=== PATIENT | male | born 1990 | race American Indian/Alaskan Native ===

== ENCOUNTER 2017-09-02 09:59 | Emergency (ER) | payer MEDICAID ==
[2017-09-02 10:53] LABS: Bilirubin,Urine NEG (Negative); Blood,Urine LG (Negative); Color,Urine Yellow (Yellow)
[2017-09-02 11:02] LABS: WBC,Urine > 182.0 /HPF (0.0-6.0)
[2017-09-02] MEDS ORDERED: BACTRIM DS PO ONE (12:07)
[2017-09-02] MEDS ORDERED: MOTRIN PO ONE (12:07)
[2017-09-02] MEDS ORDERED: ZITHROMAX PO ONE (12:08)
[2017-09-02] MEDS ORDERED: XYLOCAINE 1% MPF 5 mL INFILTRATI ONE (12:08)
[2017-09-02] MEDS ORDERED: ROCEPHIN IM ONE (12:08)
--- NOTE | 2017-09-02 12:13 | Emergency Department Report ---
ED Male HPI - General Chief complaint: Abdominal Pain Stated complaint: RIGHT FLANK PAIN/POSS UTI Time Seen by Provider: 09/02/17 12:06 Source: patient Mode of arrival: Ambulatory Limitations: No Limitations - History of Present Illness Complaint: dysuria -: Gradual, days(s) (3) Location: right flank Radiation: none Severity: mild Severity scale (0 -10): 1 Quality: aching Consistency: intermittent Improves with: rest Worsens with: movement (of trunk) trauma (denies) dysuria, other (reports history of UTI reports symptoms similar. Denies hx STD. Reports unprotected sex. 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 Reports pain with movement of his trunk. ). denies: discharge, swelling, mass, rash, urinary retention, blood in urine, fever, nausea/vomiting, incontinence - Related Data Previous Rx's Medication Instructions Recorded Last Taken Type Ibuprofen [Motrin] 600 mg PO Q8H PRN #20 tablet 09/02/17 Unknown Rx Sulfamethoxazole/Trimethoprim 1 each PO BID #20 tablet 09/02/17 Unknown Rx [Bactrim DS TAB] Allergies Allergy/AdvReac Type Severity Reaction Status Date / Time No Known Allergies Allergy Unverified 09/02/17 10:04 ED Review of Systems ROS: Stated complaint: RIGHT FLANK PAIN/POSS UTI Other details as noted in HPI Other: GENERAL: No weight change, fatigue, weakness, fever, chills, or night sweats SKIN: No changes in skin or hair, no itching, no rashes, no jaundice HEAD: No trauma, headache, or visual changes CARDIAC: No new murmur, chest pain, palpitations, dyspnea on exertion, orthopnea , PND, or edema RESPIRATORY: No shortness of breath, wheeze, cough, sputum production, hemoptysis, pneumonia, asthma, bronchitis, or emphysema GI: No change in appetite, nausea, vomiting, dysphagia, change in bowel frequency, diarrhea, constipation, bleeding, hematemesis, melena, hematochezia, or abdominal pain URINARY: No urgency, polyuria, hematuria, or incontinence MUSCULOSKELETAL: Reports right sided pain with movement. No muscle weakness, joint stiffness, decrease in range of motion, redness, swelling NEUROLOGIC: No loss of sensation, numbness, tingling, tremors, weakness, paralysis, seizures HEMATOLOGIC: No anemia, easy bruising, bleeding, petechiae, or purpura ENDOCRINE: No hot or cold intolerance, sweating, polyuria, polydipsia or, polyphagia no thyroid problems GENITAL: Male: Reports frequency and dysuria. No penile discharge, testicular pain, testicular masses, or hernia ED Past Medical Hx - Past Medical History Previous Medical History?: No - Surgical History Past Surgical History?: Yes Additional Surgical History: Right eye - Social History Smoking Status: Current Every Day Smoker Substance Use Type: Alcohol - Medications Home Medications: Home Medications Medication Instructions Recorded Confirmed Last Taken Type Ibuprofen [Motrin] 600 mg PO Q8H PRN #20 tablet 09/02/17 Unknown Rx Sulfamethoxazole/Trimethoprim 1 each PO BID #20 tablet 09/02/17 Unknown Rx [Bactrim DS TAB] ED Physical Exam - General Limitations: No Limitations - Other Other exam information: GENERAL: Patient in no acute distress HEAD: Normocephalic, atraumatic EYES: PERRLA, EOM intact, no scleral icterus, visual mejía and acuity wnl NOSE: No tenderness, discharge, sinus tenderness MOUTH: No erythema, bleeding, exudate HEART: Regular rate and rhythm, no murmur, S1-S2 are auscultated, pulses are symmetric LUNGS: bilateral breath sounds. No wheezing, rales, rhonchi ABDOMEN: Normal bowel sounds, no tenderness, no rebound, no guarding, no masses , no CVA tenderness MUSCULOSKELETAL: Normal joint range of motion, no redness, no swelling, no tenderness NEUROLOGIC: GCS 15, Alert and Oriented x3, Cranial nerves intact, normal sensation, normal strength, normal gait, no cerebellar deficit SKIN: Skin is warm and dry, no wounds, no rashes ED Course Vital Signs 09/02/17 10:04 Temperature 99.5 F Pulse Rate 97 H Respiratory 17 Rate Blood Pressure 118/85 O2 Sat by Pulse 97 Oximetry ED Medical Decision Making - Lab Data Laboratory Results - last 24 hr 09/02/17 10:31 Urine Color Yellow Urine Turbidity Clear Urine pH 6.0 Ur Specific [place] 1.009 Urine Protein 100 mg/dl Urine Glucose (UA) Neg Urine Ketones Neg Urine Blood Lg Urine Nitrite Neg Urine Bilirubin Neg Urine Urobilinogen 2.0 Ur Leukocyte Esterase Lg Urine WBC (Auto) > 182.0 H Urine RBC (Auto) 166.0 Urine WBC Clumps 3+ - Medical Decision Making Patient comfortable. Updated with results. Plan discharge with outpatient follow up. Patient agrees with plan and will return if symptoms worsen. Agrees to follow up with the health department for further testing Critical care attestation.: If time is entered above; I have spent that time in minutes in the direct care of this critically ill patient, excluding procedure time. ED Disposition Clinical Impression: Dysuria, Musculoskeletal pain Disposition: TO HOME OR SELFCARE Is pt being admited?: No Condition: Stable Instructions: Musculoskeletal Pain (ED), Dysuria (ED) Prescriptions: Ibuprofen [Motrin] 600 mg PO Q8H PRN #20 tablet PRN Reason: Pain Sulfamethoxazole/Trimethoprim [Bactrim DS TAB] 1 each PO BID #20 tablet Referrals: PRIMARY CARE, [Primary Care Provider] - 3-5 Days Time of Disposition: 12:16
[2017-09-02 13:33] VITALS: BP 128/68
== END 2017-09-02 13:35 | disposition home or self-care (01) ==
LOC: ED 09:59
DX: R30.0 Dysuria (principal); M79.1 Myalgia; F17.200 Nicotine dependence, unspecified, uncomplicated
CPT/HCPCS: 81001; 87076; 87086; 87186; 96372; 99283; J0696

== ENCOUNTER 2020-03-04 21:14 | Emergency (ER) | payer MEDICAID, OTHER ==
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
[2020-03-05] MEDS ORDERED: KETOROLAC 10 MG TAB PO ONE (01:27)
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
[2020-03-05 06:53] VITALS: BP 148/97
== END 2020-03-05 02:16 | disposition home or self-care (01) ==
LOC: ED 21:14
DX: S39.012A Strain of muscle, fascia and tendon of lower back, initial encounter (principal); S86.912A Strain of unspecified muscle(s) and tendon(s) at lower leg level, left leg, initial encounter; S86.911A Strain of unspecified muscle(s) and tendon(s) at lower leg level, right leg, initial encounter; F17.200 Nicotine dependence, unspecified, uncomplicated; Z98.890 Other specified postprocedural states; Z79.1 Long term (current) use of non-steroidal anti-inflammatories (NSAID); Z79.899 Other long term (current) drug therapy; V49.59XA Passenger injured in collision with other motor vehicles in traffic accident, initial encounter; Y93.89 Activity, other specified; Y92.410 Unspecified street and highway as the place of occurrence of the external cause; Y99.8 Other external cause status
CPT/HCPCS: 99282